=== PATIENT | female | born 1990 | race Caucasian/White ===

== ENCOUNTER 2017-10-19 08:40 | Emergency (ER) | payer MEDICAID ==
--- NOTE | 2017-10-19 08:58 | ER Document Report ---
ED General - General Chief Complaint: Toothache Stated Complaint: TOOTHACHE Time Seen by Provider: 10/19/17 08:56 Mode of Arrival: Ambulatory Information source: Patient TRAVEL OUTSIDE OF THE [place] IN LAST 30 DAYS: No - HPI Notes: 27-year-old female who is 33 weeks presents today with left lower dental pain started about 2 weeks ago. Unable to be seen by dentist. OB/ SENIOR PRODUCT MANAGER will not manage her dental pain. pain is 6/10, achy and throbbing with eating. denies any fevers or chills. denies cp, sob, n/v/d, blurred vision, double vision. Patient has been taking her left over oxycodone 10 mg which she was prescribed by her dentist when she was not last year. She states she is putting them into and taking them. Patient did not tell her HYDROLOGY TECHNICIAN that she is taking oxycodone or her dentist that she is taking oxycodone while she is . Worse with eating hard foods. reports cold sensitivity. smoker [id number] years. No throat swelling and difficulty tolerating secretions. Reports she feels moving. Denies fevers, chills, chest pain,palpitations, shortness of breath, dyspnea, nausea, vomiting, diarrhea, abdominal pain, hematuria,blurred vision, double vision, loss of vision, speech changes, LH, dizziness, syncope, headaches, wheezing, ST, URI, neck pain, weakness, bowel or bladder dysfunction, saddle anesthesia, numbness or tingling in bilateral upper or lower extremities equally, muscle paralysis, weakness in bilateral upper or lower extremities equally or rash. Denies IV drug use. - Related Data Allergies/Adverse Reactions: amoxicillin [Amoxicillin] Allergy (Verified 10/19/17 08:42) Penicillins Allergy (Verified 10/19/17 08:42) erythromycin base [Erythromycin Base] Adverse Reaction (Verified 10/19/17 08:42) Past Medical History - General Information source: Patient - Social History Smoking Status: Current Every Day Smoker Family History: CAD, DM, Hypertension, Other Renal/ Medical History: Reports: Hx Kidney Stones Past Surgical History: Reports: Hx Oral Surgery - Immunizations Immunizations up to date: Yes Hx Diphtheria, Pertussis, Tetanus Vaccination: Yes Review of Systems - Review of Systems Notes: REVIEW OF SYSTEMS: CONSTITUTIONAL : Denies fever, chills, or sweats. Denies recent illness. EENT: Denies eye, ear, throat, or mouth pain or symptoms. Denies nasal or sinus congestion or discharge. Denies throat, tongue, or mouth swelling or difficulty swallowing. + dental oain CARDIOVASCULAR: Denies chest pain. Denies palpitations or racing or irregular heart beat. Denies ankle edema. RESPIRATORY: Denies cough, cold, or chest congestion. Denies shortness of breath, difficulty breathing, or wheezing. GASTROINTESTINAL: Denies abdominal pain or distention. Denies nausea, vomiting , or diarrhea. Denies blood in vomitus, stools, or per rectum. Denies black, tarry stools. Denies constipation. GENITOURINARY: Denies difficulty urinating, painful urination, burning, frequency, blood in urine, or discharge. FEMALE GENITOURINARY: Denies vaginal bleeding, heavy or abnormal periods, irregular periods. Denies vaginal discharge or odor. MUSCULOSKELETAL: Denies back or neck pain or stiffness. Denies joint pain or swelling. SKIN: Denies rash, lesions or sores. HEMATOLOGIC : Denies easy bruising or bleeding. LYMPHATIC: Denies swollen, enlarged glands. NEUROLOGICAL: Denies confusion or altered mental status. Denies passing out or loss of consciousness. Denies dizziness or lightheadedness. Denies headache. Denies weakness or paralysis or loss of use of either side. Denies problems with gait or speech. Denies sensory loss, numbness, or tingling. Denies seizures. PSYCHIATRIC: Denies anxiety or stress. Denies depression, suicidal ideation, or homicidal ideation. ALL OTHER SYSTEMS REVIEWED AND NEGATIVE. PHYSICAL EXAMINATION: GENERAL: Well-appearing, well-nourished and in no acute distress. HEAD: Atraumatic, normocephalic. EYES: Pupils equal round and reactive to light, extraocular movements intact, conjunctiva are normal. ENT: Nares patent, oropharynx clear without exudates. Moist mucous membranes. # 19 gingiva with swelling, erythema and induration. No drainage or open wounds. No fluctuance. No facial swelling. Poor oral dentition, left lower jaw with extensive dental caries, no definite swelling or effusion. NECK: Normal range of motion, supple without lymphadenopathy LUNGS: Breath sounds clear to auscultation bilaterally and equal. No wheezes rales or rhonchi. HEART: Regular rate and rhythm without murmurs ABDOMEN: Soft, nontender, nondistended abdomen. No guarding, no rebound. No masses appreciated. HR 156. Female : deferred Musculoskeletal: Normal range of motion, no pitting or edema. No cyanosis. NEUROLOGICAL: Cranial nerves grossly intact. Normal speech, normal gait. Normal sensory, motor exams PSYCH: Normal mood, normal affect. SKIN: Warm, Dry, normal turgor, no rashes or lesions noted. Dictation was performed using [employer] voice recognition software Physical Exam - Vital signs Vitals: Temp Pulse Resp BP Pulse Ox 97.8 F 65 16 174/85 H 99 10/19/17 08:45 10/19/17 08:45 10/19/17 08:45 10/19/17 08:45 10/19/17 08:45 Course - Re-evaluation Re-evalutation: 10/19/17 09:27 She states she is taking Keflex in the past without any issues though she does have allergy to amoxicillin, penicillins and erythromycin discussed the the diagnosis at great length. Educated patient extensively about not taking controlled substances while she is as this could cause harm to child and that she should never take any medication without getting approval from her medical care team. Patient verbalized understanding of these instructions and agree that she would not continue to take any controlled substances. Advised patient to take controlled substances to the pharmacy so they could destroy them as patient is taking medication that was not intended for her element today , but she gave them from a previous time when she was having dental pain. Patient states that she did take hydrocodone when she had shingles with her last , this was prescribed by her HYDROLOGY TECHNICIAN, at time of delivery, child was observed for 3 days to make sure child did not go home with trauma. Educated mother that dental pain does not require narcotics for pain control as she can take Tylenol, warm compresses, salt water gargles, eating soft foods, etc. patient as well as her mother both agreed that she would not be controlled substances and will bring controlled substances to the pharmacy to be destroyed. An return to the ER for any new or worsening sx. Patient understands to take the Rx as directed. All questions answered. Patient comfortable with the decision to go home. After performing a Medical Screening Examination, I estimate there is LOW risk for a DEEP SPACE INFECTION (e.g., TUSHAR'S ANGINA OR RETROPHARYNGEAL ABSCESS), MENINGITIS, INTRACRANIAL HEMORRHAGE, or AIRWAY COMPROMISE, thus I consider the discharge disposition reasonable. Also, there is no evidence or peritonitis, sepsis, or toxicity. I have reevaluated this patient multiple times and no significant life threatening changes are noted. The patient and I have discussed the diagnosis and risks, and we agree with discharging home with close follow-up with the understanding that symptoms and presentations can change. We also discussed returning to the Emergency Department immediately if new or worsening symptoms occur. We have discussed the symptoms which are most concerning (e.g., changing or worsening pain, trouble swallowing or breathing, neck stiffness or fever) that necessitate immediate return. - Vital Signs Vital signs: Temp Pulse Resp BP Pulse Ox 97.8 F 65 16 174/85 H 99 10/19/17 08:45 10/19/17 08:45 10/19/17 08:45 10/19/17 08:45 10/19/17 08:45 Discharge - Discharge Clinical Impression: Dental caries Condition: Good Disposition: HOME, SELF-CARE Instructions: [facility], Dentist, ([facility]), Toothache ([facility] ) Additional Instructions: Toothache Your pain is due to dental decay. The tooth must be repaired in order for you to feel better. You will, therefore, be referred to a dentist. Severe swelling or drainage around a tooth usually means a deep dental abscess. This also requires evaluation and treatment by the dentist, but antibiotics may be prescribed while awaiting dental treatment. You should be rechecked immediately if you develop major swelling of the face, increasing pain, a lump in the jaw or gums, headache, or fever. Apply warm compress 20 minutes on 20 minutes off several times a day to help with swelling. Take [id number] Tylenol as needed for pain. Do not take hydrocodone, oxycodone or any other narcotic as you are 33 weeks and this is not recommended when he had dental pain to take narcotics. Advised you to bring these narcotics to your local pharmacy for them to destroy safely. Follow-up with your HYDROLOGY TECHNICIAN and dentist within 3 days. Return immediately for any new or worsening symptoms. Follow up with primary care provider, call tomorrow to make followup appointment. Prescriptions: Cephalexin Monohydrate [Keflex 500 mg Capsule] 500 mg PO BID #20 capsule Referrals: JHON WILD MD [ACTIVE STAFF] - Follow up in 3-5 days VALERIE CABAN MD [ACTIVE STAFF] - Follow up in 3-5 days
[2017-10-19 09:42] VITALS: BP 153/91
== END 2017-10-19 09:40 | disposition home or self-care (01) ==
LOC: ER 08:40
DX: O99.613 Diseases of the digestive system complicating pregnancy, third trimester (principal); K02.9 Dental caries, unspecified; O99.333 Smoking (tobacco) complicating pregnancy, third trimester; Z3A.33 33 weeks gestation of pregnancy; Z88.0 Allergy status to penicillin; Z88.1 Allergy status to other antibiotic agents
CPT/HCPCS: 99282

== ENCOUNTER 2017-10-29 17:32 | Emergency (ER) | payer MEDICAID ==
--- NOTE | 2017-10-29 18:13 | ER Document Report ---
HPI - HPI Pain Level: 4 Context: Patient is a 27-year-old female who is 8 months presents with toothache. Patient states that she has had dental issues delivers. With a history of hyperemesis gravidarum and smoking that she has had recurrent dental infections. She is following with a dentist to have them extracted when sheOtherwise denies any fevers, chills, foul odor, swelling. - REPRODUCTIVE Reproductive: DENIES: : Past Medical History - Social History Smoking Status: Current Every Day Smoker Family History: CAD, DM, Hypertension, Other Renal/ Medical History: Reports: Hx Kidney Stones. Denies: Hx Peritoneal Dialysis Past Surgical History: Reports: Hx Oral Surgery - Immunizations Immunizations up to date: Yes Hx Diphtheria, Pertussis, Tetanus Vaccination: Yes Vertical Provider Document - CONSTITUTIONAL Agree With Documented VS: Yes Notes: PHYSICAL EXAM GENERAL: Alert, interacts well. HEAD: Normocephalic, atraumatic. EYES: Pupils equal, round, and reactive to light. Extraocular movements intact. ENT: Oral mucosa moist, tongue midline. Evidence of poor dentition with multiple dental caries and chronic fractures without any significant abscess NECK: Full range of motion. Supple. Trachea midline. LUNGS: Clear to auscultation bilaterally, no wheezes, rales, or rhonchi. No respiratory distress. HEART: Regular rate and rhythm. No murmurs, gallops, or rubs. ABDOMEN: Soft, gravid, nondistended, nontender. No right upper quadrant pain no guarding, rebound, or rigidity.. Bowel sounds present in all 4 quadrants. EXTREMITIES: Moves all 4 extremities spontaneously. No edema, radial and dorsalis pedis pulses 2/4 bilaterally. No cyanosis. NEUROLOGICAL: Alert and oriented x4. Normal speech. PSYCH: Normal affect, normal mood. SKIN: Warm, dry, normal turgor. No rashes or lesions noted. - INFECTION CONTROL TRAVEL OUTSIDE OF THE [place] IN LAST 30 DAYS: No - RESPIRATORY O2 Sat by Pulse Oximetry: 98 Course - Re-evaluation Re-evalutation: 10/29/17 18:11 Presentation is most consistent with likely an infected tooth. Airway is patent. Patient is able swallow without any difficulty. There is no significant facial swelling. Patient will be started on antibiotics review of the vital signs are concerning for her elevated blood pressure.However patient denies any right upper quadrant pain, Weakness. Physical exam without any evidence of purpura, Mann sign, right upper quadrant tenderness, focal neurological deficits or headache. Discussed concern with patient that she does meet criteria for preeclampsia diagnosis with her elevated blood pressure. Low suspicion at this time for HELLP she states that she has discussed this previously with her NAPHTHOL SOAPING MACHINE OPERATOR at [facility] and is due to follow-up with them on Monday regarding their concern for preeclampsia diagnosis. I've instructed to follow-up with dentistry as earliest ability for definitive management but more importantly to keep her pain appointment with her NAPHTHOL SOAPING MACHINE OPERATOR to follow with her blood pressure. Return precautions and follow-up recommendations have been discussed at length. - Vital Signs Vital signs: Temp Pulse Resp BP Pulse Ox 98.4 F 70 20 149/80 H 98 10/29/17 17:40 10/29/17 17:40 10/29/17 17:40 10/29/17 17:40 10/29/17 17:40 Discharge - Discharge Clinical Impression: Toothache Condition: Good Disposition: HOME, SELF-CARE Additional Instructions: You have been seen for dental pain. It is very important that you follow-up with a dentist for definitive care. Please return if you develop fever greater than 101, swelling in your face, vomiting, difficulty breathing or swallowing, or any other symptoms that are concerning to you. For pain you should take Acetaminophen 325-650 mg every 6-8 hours as needed for pain Prescriptions: Cephalexin Monohydrate [Keflex 500 mg Capsule] 500 mg PO BID 10 Days capsule Forms: Return to Work Referrals: TREVIN REEVES MD [Primary Care Provider] - Follow up as needed
[2017-10-29 18:16] VITALS: BP 150/87
== END 2017-10-29 18:43 | disposition home or self-care (01) ==
LOC: ER 17:32
DX: O26.93 Pregnancy related conditions, unspecified, third trimester (principal); K08.9 Disorder of teeth and supporting structures, unspecified; O99.333 Smoking (tobacco) complicating pregnancy, third trimester; Z87.442 Personal history of urinary calculi
CPT/HCPCS: 99282

== ENCOUNTER 2017-11-17 18:46 | Inpatient (IN) | payer MEDICAID ==
[2017-11-17 19:46] LABS: ABSOLUTE EOSINOPHILS # (AUTO) 0.1 10^3/uL (0.0-0.6); ABSOLUTE LYMPHOCYTES (AUTO) 1.3 10^3/uL (0.5-4.7); ABSOLUTE MONOCYTES (AUTO) 0.7 10^3/uL (0.1-1.4); ABSOLUTE NEUT (AUTO) 5.7 10^3/uL (1.7-8.2); BASOPHILS % (AUTO) 0.4 % (0-2); EOSINOPHILS % (AUTO) 0.9 % (0-6); HEMOGLOBIN 13.6 g/dL (12.0-15.5); LYMPHOCYTES % (AUTO) 16.7 % (13-45); MEAN CORPUSCULAR HEMOGLOBIN 32.6 pg (27.0-33.4); MEAN CORPUSCULAR HGB CONC 34.8 g/dL (32.0-36.0); MEAN CORPUSCULAR VOLUME 94 fl (80-97); MONOCYTES % (AUTO) 9.1 % (3-13); PLATELET COUNT 122 10^3/uL (150-450); RED BLOOD COUNT 4.16 10^6/uL (3.72-5.28); SEGMENTED NEUTROPHILS % (AUTO) 72.9 % (42-78); TOTAL CELLS COUNTED % (AUTO) 100 %; WHITE BLOOD COUNT 7.9 10^3/uL (4.0-10.5)
[2017-11-17 20:00] LABS: ALANINE AMINOTRANSFERASE 29 U/L (9-52); ALBUMIN 3.6 g/dL (3.5-5.0); ALKALINE PHOSPHATASE 110 U/L (38-126); ANION GAP 8 (5-19); ASPARTATE AMINO TRANSFERASE 29 U/L (14-36); BILIRUBIN,DIRECT 0.1 mg/dL (0.0-0.4); BILIRUBIN,TOTAL 0.2 mg/dL (0.2-1.3); BLOOD UREA NITROGEN 12 mg/dL (7-20); CARBON DIOXIDE 24 mmol/L (22-30); CHLORIDE 106 mmol/L (98-107); GLUCOSE 109 mg/dL (75-110); POTASSIUM 3.9 mmol/L (3.6-5.0); SODIUM 138.4 mmol/L (137-145); TOTAL PROTEIN 6.1 g/dL (6.3-8.2); URIC ACID 2.9 mg/dL (2.5-6.2)
[2017-11-17 20:02] LABS: APPEARANCE,URINE CLEAR; BILIRUBIN,URINE NEGATIVE (NEGATIVE); COLOR,URINE YELLOW; GLUCOSE, URINE NEGATIVE (NEGATIVE); KETONES,URINE TRACE mg/dL (NEGATIVE); LEUKOCYTE ESTERASE,URINE TRACE (NEGATIVE); NITRITE,URINE NEGATIVE (NEGATIVE); PROTEIN,URINE 30 mg/dL (NEGATIVE); URINE SPECIFIC GRAVITY 1.031
[2017-11-17 20:17] LABS: URINE AMPHETAMINES SCREEN NEGATIVE; URINE BARBITURATES SCREEN NEGATIVE; URINE COCAINE SCREEN NEGATIVE; URINE METHADONE SCREEN NEGATIVE; URINE PHENCYCLIDINE SCREEN NEGATIVE
[2017-11-17] MEDS ORDERED: DINOPROSTONE 10 MG VAGINAL INSERT.SR PV PRN (20:19)
[2017-11-17] MEDS ORDERED: RINGERS SOLUTION,LACTATED 300 ML IV ONE (20:19)
[2017-11-17] MEDS: OXYTOCIN/NORMAL SALINE 20 UNIT/1,000 ML RTUINJ IV PRN (20:19)
[2017-11-17 20:26] LABS: URINE BENZODIAZEPINES SCREEN UNCONFIRMED POSITIVE; URINE MARIJUANA (THC) SCREEN UNCONFIRMED POSITIVE
[2017-11-17] MEDS ORDERED: HYDRALAZINE HCL INJ/PF 20 MG/1 ML SDV IV ONE (20:36)
[2017-11-17] MEDS ORDERED: HYDRALAZINE HCL INJ/PF 20 MG/1 ML SDV ONE (20:37)
[2017-11-17] MEDS: RINGERS SOLUTION,LACTATED 1,000 ML IV PRN (20:41)
[2017-11-17 20:51] LABS: UR PRO/CREAT RATIO RESULT 0.1 mg/mg (0.0-0.2); URINE CREATININE 220.7 mg/dL (16-327)
[2017-11-17] MEDS ORDERED: OXYTOCIN/NORMAL SALINE 20 UNIT/1,000 ML RTUINJ ONE (21:22)
--- NOTE | 2017-11-17 22:24 | RADIOLOGY REPORT (SQ) ---
EXAM DESCRIPTION: U/S OB LIMITED COMPLETED DATE/TIME: 11/17/2017 9:50 pm REASON FOR STUDY: fluid, growth, presentation, PreE COMPARISON: None. TECHNIQUE: Limited transabdominal grayscale ultrasound for evaluation of specific requested obstetri constance parameters. LIMITATIONS: None. FINDINGS: VICKIE: 6.6 cm. LVP 3.8 cm FHR: 122 beats per minute. PRESENTATION: Cephalic. OTHER: 39 week 3 day. IMPRESSION: LIMITED OBSTETRICAL ULTRASOUND WITH MEASURED PARAMETERS DELINEATED ABOVE. Trimester of : Third trimester - 28 weeks to delivery. TECHNICAL DOCUMENTATION: JOB ID: [id number] [id number] 2010 [email or web address]- All Rights Reserved Reading location - IP/workstation name: [email or web address]
[2017-11-17] MEDS ORDERED: VANCOMYCIN HCL INJ 1000 MG VIAL ONE (23:03)
[2017-11-17] MEDS ORDERED: VANCOMYCIN HCL 1,000 MG in DEXTROSE 5%-WATER 250 ML IV SCH (23:15)
[2017-11-18] MEDS ORDERED: CEPHALEXIN 500 MG CAPSULE PO ONE
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
[2017-11-18] MEDS: OXYTOCIN/NORMAL SALINE 20 UNIT/1,000 ML RTUINJ IV PRN (00:08)
[2017-11-18] MEDS ORDERED: MISOPROSTOL 0.2 MG TABLET ONE (01:49)
[2017-11-18] MEDS ORDERED: EPHEDRINE SULFATE INJ 50 MG/1 ML AMPULE ONE (01:50)
[2017-11-18] MEDS ORDERED: FENTANYL/BUPIVACAINE/NS/PF 200 MCG/100 ML RTUINJ EPI ONE (01:50)
[2017-11-18] MEDS ORDERED: BUPIVACAINE HCL 0.25 % INJ/PF (2.5 MG/1 ML) 30 ML VIAL ONE (01:50)
[2017-11-18] MEDS ORDERED: LIDOCAINE 1% INJ-PF (10 MG/ML) 30 ML SDV ONE (01:50)
[2017-11-18] MEDS ORDERED: HYDRALAZINE HCL INJ/PF 20 MG/1 ML SDV IV ONE ×3 (02:20→10:15)
[2017-11-18] MEDS: RINGERS SOLUTION,LACTATED 1,000 ML IV PRN (05:17)
[2017-11-18 05:22] LABS: CHLAM PCR NOT DETECTED (NOT DETECT); GON PCR NOT DETECTED (NOT DETECT)
[2017-11-18] MEDS ORDERED: BENZOCAINE/MENTHOL AEROSOL SPRAY 56 ML TOP PRN (07:31)
[2017-11-18] MEDS ORDERED: ZOLPIDEM TARTRATE 5 MG TABLET PO PRN (07:31)
[2017-11-18] MEDS ORDERED: DIBUCAINE 1% OINTMENT 28 GM TP PRN (07:31)
[2017-11-18] MEDS ORDERED: PROMETHAZINE HCL 25 MG TABLET PO PRN (07:31)
[2017-11-18] MEDS ORDERED: PROMETHAZINE HCL INJ 25 MG/1 ML VIAL IV PRN (07:31)
[2017-11-18] MEDS ORDERED: OXYTOCIN/NORMAL SALINE 20 UNIT/1,000 ML RTUINJ IV PRN (07:31)
[2017-11-18] MEDS ORDERED: ACETAMINOPHEN 325 MG TABLET PO PRN (07:31)
[2017-11-18] MEDS ORDERED: PSEUDOEPHEDRINE HCL 30 MG TABLET PO PRN (07:31)
[2017-11-18] MEDS ORDERED: PROMETHAZINE HCL 25 MG SUPP.RECT PR PRN (07:31)
[2017-11-18] MEDS ORDERED: DIPHENHYDRAMINE HCL 25 MG CAPSULE PO PRN (07:31)
[2017-11-18] MEDS ORDERED: DIPH/PERTUSS(ACELL)/TETANUS VAC/PF 0.5 ML SYR (>=10YO) IM PRN (07:31)
[2017-11-18] MEDS ORDERED: MEASLES,MUMPS&RUBELLA VACC/PF 0.5 ML VIAL SUBCUT PRN (07:31)
[2017-11-18] MEDS ORDERED: MAGNESIUM HYDROXIDE SUSP 30 ML UDCUP PO PRN (07:31)
[2017-11-18] MEDS ORDERED: NA PHOS,M-B/NA PHOS,DI-BA (ADULT) 133 ML ENEMA PR PRN (07:31)
[2017-11-18] MEDS ORDERED: GLYCERIN/WITCH HAZEL LEAF 1 EACH MED..PAD TP PRN (07:31)
[2017-11-18] MEDS ORDERED: ACETAMINOPHEN WITH CODEINE #3 TABLET PO PRN (07:31)
--- NOTE | 2017-11-18 07:38 | Warning Signs in Babies ---
VOD Warning Signs Datetime Report Generated by [facility]: 11/18/2017 07:38 VOD#608 -Warning Signs in Babies: Viewed with Parent(s)/Family (11/18/2017 07:38:Becka Ferguson RN)
[2017-11-18] MEDS ORDERED: HYDRALAZINE HCL INJ/PF 20 MG/1 ML SDV ONE ×2 (07:44→09:39)
[2017-11-18] MEDS ORDERED: ACETAMINOPHEN 325 MG TABLET ONE (07:55)
[2017-11-18] MEDS ORDERED: NIFEDIPINE 30 MG TAB.ER.24 PO ONE (08:49)
[2017-11-18] MEDS: NIFEDIPINE 30 MG TAB.ER.24 PO SCH (11:05)
[2017-11-18] MEDS: PRENATAL VITAMIN W DHA CAPSULE PO SCH (11:06)
[2017-11-18] MEDS: DOCUSATE SODIUM 100 MG CAPSULE PO SCH ×2 (11:06→17:13)
[2017-11-18] MEDS: CEPHALEXIN 500 MG CAPSULE PO SCH ×2 (11:07→17:14)
[2017-11-18] MEDS: FERROUS SULFATE 325 MG TABLET PO SCH ×2 (11:07→17:13)
[2017-11-18] MEDS: SENNOSIDES/DOCUSATE 8.6-50 MG 1 EACH TABLET PO SCH (11:07)
[2017-11-18] MEDS: FAMOTIDINE 20 MG TABLET PO SCH ×2 (11:12→22:47)
[2017-11-18] MEDS: IBUPROFEN 800 MG TABLET PO SCH ×2 (14:47→22:46)
[2017-11-18] MEDS ORDERED: POLYETHYLENE GLYCOL 3350 POWDER 17 GM/1 PACKET PO PRN (15:38)
[2017-11-18] MEDS: ACETAMINOPHEN WITH CODEINE #3 TABLET PO PRN (16:01)
[2017-11-18] MEDS ORDERED: POLYETHYLENE GLYCOL 3350 POWDER 17 GM/1 PACKET ONE (17:03)
[2017-11-19 07:21] LABS: HEMATOCRIT 37.3 % (36.0-47.0); HEMOGLOBIN 12.7 g/dL (12.0-15.5); MEAN CORPUSCULAR HEMOGLOBIN 32.2 pg (27.0-33.4); MEAN CORPUSCULAR VOLUME 95 fl (80-97); PLATELET COUNT 109 10^3/uL (150-450); RED BLOOD COUNT 3.94 10^6/uL (3.72-5.28); RED CELL DISTRIBUTION WIDTH 13.8 % (11.5-14.0); WHITE BLOOD COUNT 7.6 10^3/uL (4.0-10.5)
[2017-11-19] MEDS: IBUPROFEN 800 MG TABLET PO SCH ×2 (07:32→14:11)
[2017-11-19] MEDS: ACETAMINOPHEN WITH CODEINE #3 TABLET PO PRN (07:33)
[2017-11-19] MEDS: DOCUSATE SODIUM 100 MG CAPSULE PO SCH (09:11)
[2017-11-19] MEDS: FERROUS SULFATE 325 MG TABLET PO SCH (09:11)
[2017-11-19] MEDS: CEPHALEXIN 500 MG CAPSULE PO SCH (09:11)
[2017-11-19] MEDS: PRENATAL VITAMIN W DHA CAPSULE PO SCH (09:12)
[2017-11-19] MEDS: SENNOSIDES/DOCUSATE 8.6-50 MG 1 EACH TABLET PO SCH (09:12)
[2017-11-19] MEDS: FAMOTIDINE 20 MG TABLET PO SCH (09:13)
[2017-11-19] MEDS: NIFEDIPINE 30 MG TAB.ER.24 PO SCH (09:13)
[2017-11-19 09:40] VITALS: BP 122/79
[2017-11-19] MEDS ORDERED: POLYETHYLENE GLYCOL 3350 POWDER 17 GM/1 PACKET PO SCH (10:00)
--- NOTE | 2017-11-19 10:52 | PDOC PROGRESS REPORT ---
Subjective-OB Progress Note for:: 11/19/17 Subjective: Sleeping on rounds, friend in bed with her, eating well, scant bleeding, wants to go home, voiding Physical Exam (OB) Vital Signs: Temp Pulse Resp BP Pulse Ox 98.0 F 75 18 122/79 97 11/19/17 09:39 11/19/17 09:39 11/19/17 09:39 11/19/17 09:39 11/19/17 09:39 Intake & Output 11/18/17 11/19/17 11/20/17 06:59 06:59 06:59 Intake Total 800 Balance 800 Weight 62.5 kg - Lochia Lochia Amount: Scant < 10 ml Lochia Color: Rubra/Red - Abdomen Description: Tender, Soft, Round Hernia Present: No Fundal Description: Firm, Midline Fundal Height: u/u - u/2 Objective-Diagnostic Laboratory: 11/19/17 06:59 11/17/17 19:30 11/19/17 06:59 WBC 7.6 RBC 3.94 Hgb 12.7 Hct 37.3 MCV 95 MCH 32.2 MCHC 34.0 RDW 13.8 Plt Count 109 L Assessment and Plan(PN) - Assessment and Plan (2) Intrauterine growth restriction (IUGR) affecting care of mother Qualifiers: Fetus number: single or unspecified fetus Is this a current diagnosis for this admission?: Yes (3) Pre-eclampsia Qualifiers: Trimester: third trimester Qualified Code(s): O14.93 - Unspecified pre- eclampsia, third trimester Is this a current diagnosis for this admission?: Yes (4) Poor dentition Is this a current diagnosis for this admission?: Yes (5) Poor patient attendance of care Is this a current diagnosis for this admission?: Yes (6) Addiction, marijuana Is this a current diagnosis for this admission?: Yes (7) Cannabinoid hyperemesis syndrome Is this a current diagnosis for this admission?: Yes - Time Spent with Patient Time with patient: Less than 15 minutes Smoking Education Provided: Over 3 minutes Medications reviewed and adjusted accordingly: Yes - Disposition Anticipated Discharge: Home Within: Other - pt desires to go home today, baby in NICU
--- NOTE | 2017-11-19 10:59 | PDOC DISCHARGE SUMMARY ---
Final Diagnosis Discharge Date: 11/19/17 - Final Diagnosis (1) Vaginal delivery Is this a current diagnosis for this admission?: Yes (2) Intrauterine growth restriction (IUGR) affecting care of mother Is this a current diagnosis for this admission?: Yes (3) Pre-eclampsia Is this a current diagnosis for this admission?: Yes (4) Poor dentition Is this a current diagnosis for this admission?: Yes (5) Poor patient attendance of care Is this a current diagnosis for this admission?: Yes (6) Addiction, marijuana Is this a current diagnosis for this admission?: Yes Discharge Data - Discharge Medication Prescriptions: Cephalexin Monohydrate [Keflex 500 mg Capsule] 500 mg PO BID 10 Days #20 capsule Nifedipine [Procardia XL 30 mg Tablet] 30 mg PO DAILY #30 tab.er.24 Home Medications: Doxylamine Succinate/Vit B6 [Diclegis Dr 10-10 mg Tablet] 10 mg PO DAILY Vit/Iron Fum/Folic AC [ Tablet] 1 each PO DAILY 11/17/17 Cephalexin Monohydrate [Keflex 500 mg Capsule] 500 mg PO BID 10 Days #20 capsule 11/19/17 Nifedipine [Procardia XL 30 mg Tablet] 30 mg PO DAILY #30 tab.er.24 11/19/17 Gestational Age: 38.2 Reason(s) for Admission: Induction of Labor, PIH Admission Note: Preclampsia, IUGR, non compliant with care, Procedures: NST, Ultrasound Intrapartum Procedure(s): Spontaneous Vaginal Delivery - [place] Data Baby 1 Male at 1 minute: 8 at 5 minutes: 9 Weight: 1.956 kg Home with Mother: No Complications: Yes - IUGR - Diagnosis Test Laboratory: Temp Pulse Resp BP Pulse Ox 98.0 F 75 18 122/79 97 11/19/17 09:39 11/19/17 09:39 11/19/17 09:39 11/19/17 09:39 11/19/17 09:39 11/17/17 11/17/17 11/19/17 19:25 19:30 06:59 RBC 4.16 3.94 Hgb 13.6 12.7 Hct 39.0 37.3 Urine Opiates Screen UNCONFIRMED POSITIVE - Discharge information/Instructions Discharge Activity: Activity As Tolerated, No Lifting Over 10 Pounds, No Lifting /Push/Pulling, Pelvic Rest Discharge Diet: As Tolerated, Regular Disposition: HOME, SELF-CARE Follow [facility]: [facility], Days - check BP in office
--- NOTE | 2017-11-28 10:11 | Delivery Summary ---
Del Sum A-C Datetime Report Generated by CPN: 11/28/2017 10:11 DELIVERY PERSONNEL DELIVERY PERSONNEL: [id number] Delivery Doctor:: Julieta Arcos MD Anesthesiologist:: Velma Tristan MD Labor and Delivery Nurse:: Becka Ferguson RNunderground distribution engineer Nurse:: Jessa Hobbs RN Nursery Nurse:: Jeanette Cunha RN Integrated Marketing Manager/TAILERCPA: ST Jess Integrated Marketing Manager/TAILERCPA: Isis Molina, ST MATERNAL INFORMATION Delivery Anesthesia: Epidural Medications After Delivery: Pitocin Drip 20 Units/1000ml NSS Provider Comments: VMI delivered in LENCHO presentation. Nuchal cord delivered through. Shoulders and body delivered without difficulty. Cord doubly clamped and cut. Placenta delivered intact spontaneously - umbilical cord very thin and placenta appears calcified. No perineal lacerations. FF at U. Good hemostasis. Mother and baby stable upon provider leaving the room. Baby weight smaller than estimated at admission on US - so severe IUGR. LABOR SUMMARY EDC: 11/30/2017 00:00 No. Babies in Womb: 1 Attempted: No Labor Anesthesia: Epidural LABOR INFORMATION Reason for Induction: Pre-Eclampsia; Other Reason for Induction- Other: IUGR Onset of Labor: 11/18/2017 03:20 Complete Dilatation: 11/18/2017 07:04 Cervical Ripening Agents: Bailey Balloon Oxytocin: Induction Group B Beta Strep: Unknown Antibiotics # of Doses: 1 Antibiotics Time of Last Dose: 1872 Name of Antibiotic Given: Vancomycin Steroids Given: None Reason Steroids Not Administered: Not Applicable MEMBRANES Membranes Rupture Method: Artificial Rupture of Membranes: 11/18/2017 03:20 Length of Rupture (hr): 3.80 Amniotic Fluid Color: Clear Amniotic Fluid Amount: Scant Amniotic Fluid Odor: Normal STAGES OF LABOR Stage 1 hr: 3 Stage 1 min: 44 Stage 2 hr: 0 Stage 2 min: 4 Stage 3 hr: 0 Stage 3 min: 2 Total Time in Labor hr: 3 Total Time in Labor min: 50 VAGINAL DELIVERY Episiotomy: None Laceration #1: None Laceration Extension #1: N/A Laceration Repair: Not Applicable Sponge Count Correct: Yes Sharps Count Correct: Yes CSECTION DELIVERY Primary Indication: N/A Secondary Indication: N/A CSection Incidence: N/A Labor: N/A Elective: N/A CSection Incision: N/A BABY A INFORMATION Infant Delivery Date/Time: 11/18/2017 07:08 Method of Delivery: Vaginal Born in Route : No : N/A Forceps: N/A Vacuum Extraction: N/A Shoulder Dystocia : No PRESENTATION/POSITION BABY A Presentation: Cephalic Presentation: Cephalic Cephalic Presentation: Vertex Vertex Position: Left Occipital Anterior Breech Presentation: N/A PLACENTA INFORMATION BABY A Placenta Delivery Time : 11/18/2017 07:10 Placenta Method of Delivery: Spontaneous Placenta Status: Delivered SCORES BABY A Heart Rate 1 min: >100 bpm Resp Effort 1 min: Good Cry Reflex Irritability 1 min: Cough or Sneeze or Pulls Away Muscle Tone 1 min: Active Motion Color 1 min: Blue/Pale Resuscitation Effort 1 min: Tactile Stimulation SCORE 1 MIN: 8 Heart Rate 5 min: >100 bpm Resp Effort 5 min: Good Cry Reflex Irritability 5 min: Cough or Sneeze or Pulls Away Muscle Tone 5 min: Active Motion Color 5 min: Body [place], Extremities Blue Resuscitation Effort 5 min: Tactile Stimulation SCORE 5 MIN: 9 INFANT INFORMATION BABY A Gestational Age at Delivery: 38.2 Gestational Status: Early Term- 37- 38.6 Weeks Outcome : Liveborn Infant Condition : Stable Infant Sex: Male IDENTIFICATION BABY A Verification Date/Time: 11/18/2017 08:45 ID Band Number: [id number] Mother's Name Verified: Yes RN Verifying : R Marty RN, C [employer] RN WEIGHT/LENGTH BABY A Infant Birthweight (gm): 1950 Infant Weight (lb): 4 Weight (oz): 5 Length (in): 16.50 Infant Length (cm): 41.91 CORD INFORMATION BABY A No. Cord Vessels: 3 Nuchal Cord : Around Neck x1, Loose Cord Blood Taken: Yes-For Eval (Mom's Blood Type - or O+) Infant Suction: Mouth; Nose ASSESSMENT BABY A Skin to Skin: Yes BABY B INFORMATION : N/A SIGNATURES Signature: Electronically signed by Julieta Arcos MD ([facility]) on 11/18/2017 at 07:45 with User ID: [email or web address]
== END 2017-11-19 14:31 | disposition home or self-care (01) | DRG 775 ==
LOC: LC 18:46 → LR 19:26 → 2S 11-18 10:20
PROVIDERS: ADMIT Student in an Organized Health Care Education/Training Program; ATTEND Student in an Organized Health Care Education/Training Program
PROC: 4A1HXCZ Monitoring of Products of Conception, Cardiac Rate, External Approach (ICD-10-PCS; 2017-11-17)
PROC: 10E0XZZ Delivery of Products of Conception, External Approach (ICD-10-PCS; principal; 2017-11-18)
PROC: 0U7C7ZZ Dilation of Cervix, Via Natural or Artificial Opening (ICD-10-PCS; 2017-11-18)
PROC: 3E033VJ Introduction of Other Hormone into Peripheral Vein, Percutaneous Approach (ICD-10-PCS; 2017-11-18)
PROC: 10907ZC Drainage of Amniotic Fluid, Therapeutic from Products of Conception, Via Natural or Artificial Opening (ICD-10-PCS; 2017-11-18)
DX: O36.5930 Maternal care for other known or suspected poor fetal growth, third trimester, not applicable or unspecified (principal); O99.324 Drug use complicating childbirth; O14.04 Mild to moderate pre-eclampsia, complicating childbirth; F12.20 Cannabis dependence, uncomplicated; O13.4 Gestational [pregnancy-induced] hypertension without significant proteinuria, complicating childbirth; O21.1 Hyperemesis gravidarum with metabolic disturbance; F17.210 Nicotine dependence, cigarettes, uncomplicated; O99.334 Smoking (tobacco) complicating childbirth; K42.9 Umbilical hernia without obstruction or gangrene; O26.893 Other specified pregnancy related conditions, third trimester; O69.81X0 Labor and delivery complicated by cord around neck, without compression, not applicable or unspecified; Z79.899 Other long term (current) drug therapy; Z91.19 Patient's noncompliance with other medical treatment and regimen; Z88.3 Allergy status to other anti-infective agents; Z88.0 Allergy status to penicillin; Z3A.38 38 weeks gestation of pregnancy; Z37.0 Single live birth
CPT/HCPCS: 36415; 76815; 80053; 80307; 80361; 81001; 82570; 84156; 84550; 85025; 85027; 86592; 86850; 86900; 86901; 87491; 87591; 88307; C1726; G0480; J0360; J2590; J3370; J3490

== ENCOUNTER 2020-05-19 20:06 | Inpatient (IN) | payer MEDICAID ==
[2020-05-19] MEDS ORDERED: DINOPROSTONE 10 MG VAGINAL INSERT.SR PV PRN (20:25)
[2020-05-19] MEDS ORDERED: RINGERS SOLUTION,LACTATED 1,000 ML IV ONE (20:25)
[2020-05-19] MEDS ORDERED: MISOPROSTOL 0.2 MG TABLET ONE (20:30)
[2020-05-19] MEDS ORDERED: OXYTOCIN/0.9 % SODIUM CHLORIDE 30 UNIT/500 ML RTUINJ ONE (20:30)
[2020-05-19] MEDS ORDERED: OXYTOCIN 10 UNIT/ML VIAL ONE (20:30)
[2020-05-19] MEDS ORDERED: DINOPROSTONE 10 MG VAGINAL INSERT.SR ONE (20:30)
[2020-05-19] MEDS ORDERED: LIDOCAINE 1% INJ-PF (10 MG/ML) 30 ML SDV ONE (20:30)
[2020-05-19] MEDS: RINGERS SOLUTION,LACTATED 1,000 ML IV PRN (20:55)
[2020-05-19 21:18] LABS: ABSOLUTE EOSINOPHILS # (AUTO) 0.1 10^3/uL (0.0-0.6); ABSOLUTE MONOCYTES (AUTO) 0.7 10^3/uL (0.1-1.4); ABSOLUTE NEUT (AUTO) 5.9 10^3/uL (1.7-8.2); BASOPHILS % (AUTO) 0.5 % (0-2); EOSINOPHILS % (AUTO) 1.2 % (0-6); HEMATOCRIT 35.9 % (36.0-47.0); HEMOGLOBIN 12.4 g/dL (12.0-15.5); LYMPHOCYTES % (AUTO) 13.1 % (13-45); MEAN CORPUSCULAR HEMOGLOBIN 31.1 pg (27.0-33.4); MEAN CORPUSCULAR HGB CONC 34.6 g/dL (32.0-36.0); MEAN CORPUSCULAR VOLUME 90 fl (80-97); MONOCYTES % (AUTO) 8.8 % (3-13); PLATELET COUNT 102 10^3/uL (150-450); RED BLOOD COUNT 3.99 10^6/uL (3.72-5.28); RED CELL DISTRIBUTION WIDTH 14.5 % (11.5-14.0); SEGMENTED NEUTROPHILS % (AUTO) 76.4 % (42-78); TOTAL CELLS COUNTED % (AUTO) 100 %; WHITE BLOOD COUNT 7.7 10^3/uL (4.0-10.5)
[2020-05-19 21:48] LABS: APPEARANCE,URINE CLEAR; BILIRUBIN,URINE NEGATIVE (NEGATIVE); COLOR,URINE AMBER; GLUCOSE, URINE NEGATIVE (NEGATIVE); KETONES,URINE TRACE mg/dL (NEGATIVE); LEUKOCYTE ESTERASE,URINE SMALL (NEGATIVE); NITRITE,URINE NEGATIVE (NEGATIVE); PROTEIN,URINE 30 mg/dL (NEGATIVE); URINE SPECIFIC GRAVITY 1.027; UROBILINOGEN,URINE NEGATIVE mg/dL (<2.0)
[2020-05-19] MEDS ORDERED: ZOLPIDEM TARTRATE 5 MG TABLET ONE (21:51)
[2020-05-19 22:01] LABS: URINE AMPHETAMINES SCREEN NEGATIVE; URINE BARBITURATES SCREEN NEGATIVE; URINE BENZODIAZEPINES SCREEN NEGATIVE; URINE COCAINE SCREEN NEGATIVE; URINE METHADONE SCREEN NEGATIVE; URINE PHENCYCLIDINE SCREEN NEGATIVE
[2020-05-19 22:02] LABS: URINE MARIJUANA (THC) SCREEN UNCONFIRMED POSITIVE
--- NOTE | 2020-05-19 22:06 | Admission Physical ---
Datetime Report Generated by CPN: 05/19/2020 22:05 CURRENT ADMISSION Chief Complaint: Signs/Symptoms Gestational HTN Indication for Induction: Gestational HTN Admit Impression : Term, Intrauterine Admit Plan: Admit to Unit ALLERGIES Medication Allergies: Yes Medication Allergies: Penicillins (11/17/2017); erythromycin base (11/17/2017); amoxicillin (11/17/2017) Latex: No Latex Allergies OBSTETRICAL HISTORY EDC: 05/30/2020 00:00 : 6 Para: 4 Term: 3 : 1 Livin Gestational Diabetes: No Rh Sensitization: No Incompetent Cervix: No NAKUL: No Infertility: No ART Treatment: No Uterine Anomaly: No IUGR: No Hx Previous C/S: No Macrosomia: No Hx Loss/Stillborn: No PIH: Yes Hx : No Placenta Previa/Abruption: No Depression/PP Depression: No PTL/PROM: No Post Hemorrhage: No Current Procedures: Ultrasound Obstetrical History Comments: G1- 2006, , term G2- 2011, , term G3- 2013, , 36 weeks G4- 2016, SAB G5- 2017, , term SEE RECORDS Alcohol: Yes Marijuana : Yes Cocaine: No Other Illicit Drugs: No Cigarettes: Current Everyday Smoker. [id number] Cigarette Frequency: < 5 per day Advised to Stop: Yes MEDICAL HISTORY Diabetes: No Blood Transfusion: No Pulmonary Disease (Asthma, TB): Yes Breast Disease: No Hypertension: Yes Layer Out Surgery: No Heart Disease: No Hosp/Surgery: Yes Autoimmune Disorder: No Anesthetic Complications: No Kidney Disease: Yes Abnormal Pap Smear: No Neuro/Epilepsy: No Psychiatric Disorders: No Other Medical Diseases: No Hepatitis/Liver Disease: No Significant Family History: No Varicosities/Phlebitis: No Trauma/Violence : No Thyroid Dysfunction: No Medical History Comments: GHTN with previous and current, UTI in the past, bronchial asthma, childbirth INFECTIOUS HISTORY Gonorrhea: No Genital Herpes: No Chlamydia: No Tuberculosis: No Syphilis: No Hepatitis: No HIV/AIDS Exposure: No Rash or Viral Illness: No HPV: No PHYSICAL EXAM General: Normal HEENT: Normal Neurologic: Normal Thyroid: Normal Heart: Normal Lungs: Normal Breast: Deferred Back: Normal Abdomen: Normal Genitourinary Exam: Normal Extremities: Normal DTRs: Normal Pelvic Type: Adequate FETUS A EGA: 38.3 PLANS FOR LABOR AND DELIVERY Labor and Delivery: None Pain Management: Epidural Feeding Preference: Formula Benefit of Breast Feed Discussed: Yes Circumcision: N/A INFORMED CONSENT Signature: with User ID: [email or web address]
[2020-05-20] MEDS ORDERED: MAG HYDROX/AL HYDROX/SIMETH SUSP 30 ML UDCUP ONE (04:05)
[2020-05-20 04:13] LABS: CHLAM PCR NOT DETECTED (NOT DETECT)
[2020-05-20] MEDS ORDERED: NALBUPHINE HCL INJ 10 MG/1 ML AMPULE INJ ONE (04:26)
[2020-05-20] MEDS ORDERED: PROMETHAZINE HCL INJ 25 MG/1 ML VIAL IV ONE (04:26)
[2020-05-20] MEDS ORDERED: NALBUPHINE HCL INJ 10 MG/1 ML AMPULE ONE (04:28)
[2020-05-20] MEDS ORDERED: PROMETHAZINE HCL INJ 25 MG/1 ML VIAL ONE (04:28)
[2020-05-20] MEDS ORDERED: ACETAMINOPHEN 325 MG TABLET ONE (07:48)
[2020-05-20] MEDS ORDERED: ACETAMINOPHEN 325 MG TABLET PO ONE (07:54)
[2020-05-20] MEDS ORDERED: EPHEDRINE SULFATE INJ 50 MG/1 ML AMPULE ONE (08:26)
[2020-05-20] MEDS ORDERED: ROPIVACAINE HCL 0.2% INJ/PF (2 MG/ML) 20 ML SDV ONE (08:26)
[2020-05-20] MEDS ORDERED: FENTANYL/BUPIVACAINE/NS/PF 300 MCG/150 ML RTUINJ EPI ONE (08:26)
--- NOTE | 2020-05-20 08:28 | L&D Progress Notes ---
PROGRESS NOTES Datetime Report Generated by CPN: 05/20/2020 08:28 PROGRESS NOTE Impression: Reassuring Heart Rate Procedures: Sterile Vag Exam Plan: Continue Present Management; Anticipate Vaginal Delivery Plan Other: pt may have epidural if possible Vital Signs : Reviewed; Within Normal Limits Comment: Assuming care of pt. IOL started last night w/ cervidil. at 38.3 wks, Pt now SROM and having strong contractions. Desires an epidural. VE /-1, vtx, appears clear fluid. Limited PNC, IOL for GHTN. O+, Rubella Immune, GBS negative. Low Platelets noted on admission. Attending MD is Dr De Souza this morning. Anticipate VAGINAL EXAM Dilatation: 4 Effacement: 90 Station: -1 Contractions: q2 LAST VAGINAL EXAM-NURSING Nursing Exam Dilitation: 3.0 Nursing Exam Effacement: 50 Nursing Exam Station: -3 Nursing Exam Contractions: irritability noted MEMBRANES Membranes: Ruptured Amniotic Fluid Color: Clear FETUS A FHR - Baseline: 140 Monitoring: External US Variability: Moderate 6-25bpm Accelerations: 15X15 Decelerations: None SIGNATURE SIGNATURE: [id number];[id number] Assignment: Josette De Souza MD Signature: with User ID: Greg : with User ID: Greg
[2020-05-20 08:35] LABS: ABSOLUTE BASOPHILS # (AUTO) 0.1 10^3/uL (0.0-0.2); ABSOLUTE EOSINOPHILS # (AUTO) 0.1 10^3/uL (0.0-0.6); ABSOLUTE LYMPHOCYTES (AUTO) 1.2 10^3/uL (0.5-4.7); ABSOLUTE MONOCYTES (AUTO) 1.1 10^3/uL (0.1-1.4); ABSOLUTE NEUT (AUTO) 8.2 10^3/uL (1.7-8.2); BASOPHILS % (AUTO) 0.6 % (0-2); EOSINOPHILS % (AUTO) 0.8 % (0-6); HEMATOCRIT 37.5 % (36.0-47.0); HEMOGLOBIN 13.3 g/dL (12.0-15.5); LYMPHOCYTES % (AUTO) 11.3 % (13-45); MEAN CORPUSCULAR HEMOGLOBIN 31.6 pg (27.0-33.4); MEAN CORPUSCULAR HGB CONC 35.4 g/dL (32.0-36.0); MEAN CORPUSCULAR VOLUME 89 fl (80-97); MONOCYTES % (AUTO) 10.4 % (3-13); RED BLOOD COUNT 4.21 10^6/uL (3.72-5.28); RED CELL DISTRIBUTION WIDTH 14.8 % (11.5-14.0); SEGMENTED NEUTROPHILS % (AUTO) 76.9 % (42-78); TOTAL CELLS COUNTED % (AUTO) 100 %; WHITE BLOOD COUNT 10.6 10^3/uL (4.0-10.5)
[2020-05-20 08:40] LABS: PLATELET COUNT 107 10^3/uL (150-450)
[2020-05-20] MEDS: RINGERS SOLUTION,LACTATED 1,000 ML IV PRN (09:11)
[2020-05-20] MEDS ORDERED: NA PHOS,M-B/NA PHOS,DI-BA (ADULT) 133 ML ENEMA PR PRN (10:04)
[2020-05-20] MEDS ORDERED: GLYCERIN/WITCH HAZEL LEAF 1 EACH MED..WIPE TP PRN (10:04)
[2020-05-20] MEDS ORDERED: PROMETHAZINE HCL INJ 25 MG/1 ML VIAL IV PRN (10:04)
[2020-05-20] MEDS ORDERED: MEASLES,MUMPS&RUBELLA VACC/PF 0.5 ML VIAL SUBCUT PRN (10:04)
[2020-05-20] MEDS ORDERED: OXYTOCIN/0.9 % SODIUM CHLORIDE 30 UNIT/500 ML RTUINJ IV PRN (10:04)
[2020-05-20] MEDS ORDERED: ACETAMINOPHEN 650 MG SUPP.RECT PR PRN (10:04)
[2020-05-20] MEDS ORDERED: ZOLPIDEM TARTRATE 5 MG TABLET PO PRN (10:04)
[2020-05-20] MEDS ORDERED: PROMETHAZINE HCL 25 MG TABLET PO PRN (10:04)
[2020-05-20] MEDS ORDERED: DIBUCAINE 1% OINTMENT 28 GM TP PRN (10:04)
[2020-05-20] MEDS ORDERED: DIPHENHYDRAMINE HCL 25 MG CAPSULE PO PRN (10:04)
[2020-05-20] MEDS ORDERED: PSEUDOEPHEDRINE HCL 30 MG TABLET PO PRN (10:04)
[2020-05-20] MEDS ORDERED: BENZOCAINE/MENTHOL AEROSOL SPRAY 56 ML TOP PRN (10:04)
[2020-05-20] MEDS ORDERED: MAGNESIUM HYDROXIDE SUSP 30 ML UDCUP PO PRN (10:04)
[2020-05-20] MEDS ORDERED: PROMETHAZINE HCL 25 MG SUPP.RECT PR PRN (10:04)
[2020-05-20] MEDS ORDERED: DIPH/PERTUSS(ACELL)/TETANUS VAC/PF 0.5 ML SYR (>=10YO) IM PRN (10:04)
[2020-05-20] MEDS ORDERED: ACETAMINOPHEN WITH CODEINE #3 TABLET ONE (11:22)
[2020-05-20] MEDS: ACETAMINOPHEN WITH CODEINE #3 TABLET PO PRN ×3 (11:24→22:09)
--- NOTE | 2020-05-20 12:00 | Delivery Summary ---
Del Sum A-C Datetime Report Generated by CPN: 05/20/2020 12:00 DELIVERY PERSONNEL DELIVERY PERSONNEL: [id number] Delivery Doctor:: Jia Willett CNM Labor and Delivery Nurse:: Jazlyn Cuello RNbiomedical specialist Nurse:: Inga Dennis RNC Nursery Nurse:: Korina Valdes RN Nursery Nurse:: Daniella Mercado RN Newspaper Photo Editor/TIP PRINTER: Germaine Jorge, ST Newspaper Photo Editor/TIP PRINTER: Sunitha Pitsko, ETHOLOGIST MATERNAL INFORMATION Medications After Delivery: Pitocin 30 Units in 500ml NS/D5W Delivery QBL: 200 Provider Comments: of VFI, delivered PATRICA, baby crying and placed on pts abodman in stable condition. Cord clamped and cut after one minute. Cord blood collected. Placenta delivered IV Pitocin infusing. Will send to pathology. Lower uterine segment atony noted, two small pieces of trailing membranes removed, then uterus was able to clamp down immediately, bleeding spontaneously resolved. 200 mcg Buccal Cytotec given. No repair needed. QBL 400 ml. Apgars 8,9. Mother and baby both in stable condition, skin to skin. Pt plans to bottlefeed. Attending MD is Dr De Souza LABOR SUMMARY EDC: 05/30/2020 00:00 No. Babies in Womb: 1 Attempted: No Labor Anesthesia: Epidural LABOR INFORMATION Reason for Induction: Gestational Hypertension Onset of Labor: 05/20/2020 07:30 Complete Dilatation: 05/20/2020 09:30 Cervical Ripening Agents: Cervidil Oxytocin: N/A Group B Beta Strep: negative Antibiotics # of Doses: n/a Steroids Given: None Reason Steroids Not Administered: Not Applicable MEMBRANES Membranes Rupture Method: Spontaneous Rupture of Membranes: 05/20/2020 07:30 Length of Rupture (hr): 2.13 Amniotic Fluid Color: Clear Amniotic Fluid Amount: Small Amniotic Fluid Odor: Normal STAGES OF LABOR Stage 1 hr: 2 Stage 1 min: 0 Stage 2 hr: 0 Stage 2 min: 8 Stage 3 hr: 0 Stage 3 min: 10 Total Time in Labor hr: 2 Total Time in Labor min: 18 VAGINAL DELIVERY Episiotomy: None Laceration Extension #1: First Degree Other Laceration: small labial minoral tare, hemostatiec, no repair needed Laceration Repair: Not Applicable Sponge Count Correct: Yes Sharps Count Correct: Yes CSECTION DELIVERY Primary Indication: N/A Secondary Indication: N/A CSection Incidence: N/A Labor: N/A Elective: N/A CSection Incision: N/A BABY A INFORMATION Infant Delivery Date/Time: 05/20/2020 09:38 Method of Delivery: Vaginal Nurse Controlled Delivery: No Born in Route : No : N/A Forceps: N/A Vacuum Extraction: N/A Shoulder Dystocia : No PRESENTATION/POSITION BABY A Presentation: Cephalic Cephalic Presentation: Vertex Breech Presentation: N/A PLACENTA INFORMATION BABY A Placenta Delivery Time : 05/20/2020 09:48 Placenta Method of Delivery: Spontaneous Placenta Status: Delivered SCORES BABY A Heart Rate 1 min: >100 bpm Resp Effort 1 min: Good Cry Reflex Irritability 1 min: Cough or Sneeze or Pulls Away Muscle Tone 1 min: Active Motion Color 1 min: Blue/Pale Resuscitation Effort 1 min: Tactile Stimulation SCORE 1 MIN: 8 Heart Rate 5 min: >100 bpm Resp Effort 5 min: Good Cry Reflex Irritability 5 min: Cough or Sneeze or Pulls Away Muscle Tone 5 min: Active Motion Color 5 min: Body Catherine, Extremities Blue SCORE 5 MIN: 9 INFORMATION BABY A Gestational Age at Delivery: 38.4 Gestational Status: Early Term- 37- 38.6 Weeks Outcome : Liveborn Infant Condition : Stable Sex: Female IDENTIFICATION BABY A Verification Date/Time: 05/20/2020 10:01 ID Band Number: [id number] Mother's Name Verified: Yes RN Verifying : Heena Cuello RN Additional Verifying Personnel: SCindy Jorge ST WEIGHT/LENGTH BABY A Infant Birthweight (gm): 2725 Infant Weight (lb): 6 Infant Weight (oz): 0 Infant Length (in): 18.75 Length (cm): 47.63 CORD INFORMATION BABY A No. Cord Vessels: 3 Nuchal Cord : N/A Cord Blood Taken: Yes-For Eval (Mom's Blood Type - or O+) Infant Suction: None ASSESSMENT BABY A Skin to Skin: Yes BABY B INFORMATION : N/A SIGNATURES Assignment: Josette De Souza MD Signature: with User ID: Greg : with User ID: Greg
--- NOTE | 2020-05-20 12:00 | Birth Certificate Data ---
Cert Data Datetime Report Generated by CPN: 05/20/2020 12:00 CERTIFICATE DATA 47a. Care: No (05/19/2020 19:53:Rosalie Collier RN) 47b. Date of First Visit: 03/02/2020 00:00 (05/19/2020 19:53:MEEK Kunz) 47c. Date of Last Visit: 05/19/2020 00:00 (05/19/2020 19:53:MEEK Kunz) 47d. Number of Visits: 3 (05/19/2020 19:53:MEEK Kunz) 48a. Number of Prev Live Births: 4 (05/19/2020 19:52:Rosalie Collier RN) 48b. Now Livin (05/19/2020 19:52:Rosalie Collier RN) 48c. Live Births Now : 0 (05/19/2020 19:52:QS system process) RISK FACTORS IN THIS 49a. Diabetes: No (05/19/2020 19:53:Rosalie Collier RN) 49b. Hypertension: Yes (05/19/2020 19:53:Rosalie Collier RN) Type of Hypertension: Gestational (PIH, Pre-eclampsia) (05/19/2020 19:53:Rosalie Collier RN) 49c. Previous Births: 1 (05/19/2020 19:52:Rosalie Collier RN) 49d. Stillborns: No (05/19/2020 19:53:Rosalie Collier RN) 49d. IUGR: No (05/19/2020 19:53:Rosalie Collier RN) 49e. Infertility Treatment: No (05/19/2020 19:53:Rosalie Collier RN) Mother's Height 50b. Height Inches: 62 (05/20/2020 11:44:Frogdice system process) Mother's Weight 51a. Pre- Weight (lbs): 115 (05/19/2020 19:53:Rosalie Collier RN) 51b. Weight at Delivery (lbs): 141 (05/20/2020 11:44:QS system process) 52. Dt Last Normal Menses Began: 10/17/2019 00:00 (05/19/2020 19:52:Rosalie Collier RN) Infections Present/Treated 53a. Gonorrhea: No (05/19/2020 19:53:Rosalie Collier RN) Results this Hospital Visit : Negative (05/19/2020 19:53:Rosalie Collier RN) 53b. Syphilis: No (05/19/2020 19:53:Rosalie Collier RN) Results this Hospital Visit: NONREACTIVE (05/19/2020 20:51:QS system process) 53c. Chlamydia: No (05/19/2020 19:53:Rosalie Collier RN) Results this Hospital Visit: Negative (05/19/2020 19:53:Rosalie Collier RN) 53d. Hepatitis B: No (05/19/2020 19:53:Rosalie Collier RN) Results this Hospital Visit: Unknown (05/19/2020 19:53:MEEK Kunz) 53e. Hepatitis C: Negative (05/19/2020 19:52:Rosalie Collier RN) 53h. Mother Tested for HBsAG: Yes (05/19/2020 19:53:MEEK Kunz) 53i. Date Tested: 05/19/2020 00:00 (05/19/2020 19:53:MEEK Kunz) 53j. Test Result: Unknown (05/19/2020 19:53:MEEK Kunz) Obstetric Procedures 54a, b, c. Obstetric Procedures: Ultrasound (05/19/2020 19:53:Rosalie Collier RN) Cigarette Smoking Cigarette Smoking: Current Everyday Smoker. [id number] (05/19/2020 19:53:Rosalie Collier RN) 55a. 3 Months Before Preg - Ci (05/19/2020 19:53:Rosalie Collier RN) 55b. 1st Trimester of Preg- Ci (05/19/2020 19:53:Rosalie Collier RN) 55c. 2nd Trimester of Preg- Ci (05/19/2020 19:53:Rosalie Collier RN) 55d. 3rd Trimester of Preg- Ci (05/19/2020 19:53:Rosalie Collier RN) Onset of Labor 56a. PROM >12 Hrs: 2.13 (05/19/2020 19:53:QS system process) 56b. Precipitous Labor <3 Hrs: 2 (05/19/2020 19:53:QS system process) 56c. Prolonged Labor > 20 Hrs: 2 (05/19/2020 19:53:QS system process) 57a. Induction of Labor: N/A (05/19/2020 19:53:Jazlyn Cuello RN) 57a. Induction of Labor: Cervidil (05/19/2020 21:58:Rosalie Collier RN) 57c. Non-Vertex Presentation A: Vertex (05/19/2020 19:53:Jazlyn Cuello RN) 57d. Steroids - Lung Mat: None (05/19/2020 19:53:Rosalie Collier RN) 57d. Steroids - Lung Mat: Not Applicable (05/19/2020 19:53:Rosalie Collier RN) 57g. Moderate/Heavy Meconium: Clear (05/19/2020 19:53:Jazlyn Cuello RN) 57h. Intolerance of Labor: N/A (05/19/2020 19:53:Jazlyn Cuello RN) : N/A (05/19/2020 19:53:Jazlyn Cuello RN) 57i. Epidural/Spinal Anesthesia: Epidural (05/19/2020 19:53:Jazlyn Cuello RN) Method of Delivery 58a. Forceps - Unsuccessful A: N/A (05/19/2020 19:53:Jazlyn Cuello RN) 58b. Vacuum - Unsuccessful A: N/A (05/19/2020 19:53:Jazlyn Cuello RN) 58c. Presentation at 58c. Presentation at - A : Vertex (05/19/2020 19:53:Jazlyn Cuello RN) 58c. Presentation at - A : N/A (05/19/2020 19:53:Jazlyn Cuello RN) 58c. Presentation at - A : Cephalic (05/19/2020 19:53:Rosalie Collier RN) Final Route and Method of Del 58d. Baby A Route/Delivery: Vaginal (05/19/2020 19:53:Jazlyn Cuello RN) 58e. Trial of Labor Attempted: No (05/19/2020 19:53:Rosalie Collier RN) 58e. Trial of Labor Attempted A: N/A (05/19/2020 19:53:Rosalie Collier RN) 58e. Trial of Labor Attempted B: N/A (05/19/2020 19:53:Rosalie Collier RN) Maternal Morbidity 59b. 3rd or 4th Degree Lacs: N/A (05/19/2020 19:53:Jazlyn Cuello RN) 59b. 3rd or 4th Degree Lacs: small labial minoral tare, hemostatiec, no repair needed (05/19/2020 19:53:Jia Willett CNM) Birthweight Baby A: 2725 (05/19/2020 19:53:Korina Valdes RN) 60a. Pounds : 6 (05/19/2020 19:53:QS system process) 60b. Ounces: 0 (05/19/2020 19:53:QS system process) 61. GA at Delivery Baby A: 38.4 (05/19/2020 19:53:Rosalie Collier RN) : Early Term- 37- 38.6 Weeks (05/19/2020 19:53:QS system process) 62a. 5 Minute Baby A: 9 (05/19/2020 19:53:QS system process)
[2020-05-20 12:02] LABS: ALBUMIN 3.5 g/dL (3.5-5.0); ALKALINE PHOSPHATASE 200 U/L (38-126); ANION GAP 9 (5-19); ASPARTATE AMINO TRANSFERASE 26 U/L (14-36); BILIRUBIN,DIRECT 0.2 mg/dL (0.0-0.4); BILIRUBIN,TOTAL 0.5 mg/dL (0.2-1.3); BLOOD UREA NITROGEN 13 mg/dL (7-20); CALCIUM 8.8 mg/dL (8.4-10.2); CARBON DIOXIDE 19 mmol/L (22-30); CHLORIDE 109 mmol/L (98-107); GLUCOSE 83 mg/dL (75-110); POTASSIUM 4.5 mmol/L (3.6-5.0)
[2020-05-20] MEDS ORDERED: IBUPROFEN 800 MG TABLET PO ONE (14:30)
[2020-05-20] MEDS: FERROUS SULFATE 325 MG TABLET PO SCH (17:46)
[2020-05-20] MEDS: DOCUSATE SODIUM 100 MG CAPSULE PO SCH (17:46)
[2020-05-20] MEDS: FAMOTIDINE 20 MG TABLET PO SCH (22:08)
[2020-05-20] MEDS: IBUPROFEN 800 MG TABLET PO SCH (22:08)
[2020-05-21] MEDS: IBUPROFEN 800 MG TABLET PO SCH ×2 (05:30→22:35)
[2020-05-21 07:36] LABS: HEMATOCRIT 29.3 % (36.0-47.0); MEAN CORPUSCULAR HEMOGLOBIN 31.9 pg (27.0-33.4); MEAN CORPUSCULAR HGB CONC 35.1 g/dL (32.0-36.0); MEAN CORPUSCULAR VOLUME 91 fl (80-97); RED BLOOD COUNT 3.23 10^6/uL (3.72-5.28); RED CELL DISTRIBUTION WIDTH 14.5 % (11.5-14.0); WHITE BLOOD COUNT 6.4 10^3/uL (4.0-10.5)
[2020-05-21] MEDS: ACETAMINOPHEN WITH CODEINE #3 TABLET PO PRN ×3 (07:56→18:15)
[2020-05-21 08:01] LABS: HEPATITS B SURFACE ANTIGEN Negative (Negative)
[2020-05-21 08:03] LABS: PLATELET COUNT 80 10^3/uL (150-450)
[2020-05-21 08:33] LABS: HEMOGLOBIN 10.3 g/dL (12.0-15.5)
--- NOTE | 2020-05-21 10:43 | PDOC PROGRESS REPORT ---
Subjective-OB Progress Note for:: 05/21/20 Physical Exam (OB) Vital Signs: Temp Pulse Resp BP Pulse Ox 97.7 F 62 18 127/84 H 98 05/21/20 08:13 05/21/20 08:13 05/21/20 08:13 05/21/20 08:13 05/21/20 08:13 Intake & Output 05/20/20 05/21/20 05/22/20 06:59 06:59 06:59 Intake Total 1000 318 Balance 1000 318 Weight 63.6 kg - PIH/Pre-Eclampsia DTR's: 2 + Clonus: Negative Headache: Absent Epigastric Pain: No Visual Changes: No - Maternal Morbidity 59. Maternal Morbidity (serious complications experinced by the mother associated with labor and delivery: None of the above - Lochia Lochia Amount: Scant < 10 ml Lochia Color: Rubra/Red - Abdomen Description: Soft, Round Hernia Present: Yes - HX. umbilical hernia Bowel Sounds: Normoactive Flatus Presence: Present Stool: Yes Fundal Description: Firm, Midline Fundal Height: u/u - u/2 Objective-Diagnostic Laboratory: 05/21/20 06:43 05/20/20 08:23 05/20/20 05/21/20 08:23 06:43 WBC 6.4 RBC 3.23 L Hgb 10.3 L D Hct 29.3 L MCV 91 MCH 31.9 MCHC 35.1 RDW 14.5 H Plt Count 80 L Sodium 136.6 L Potassium 4.5 Chloride 109 H Carbon Dioxide 19 L Anion Gap 9 BUN 13 Creatinine 0.66 Est GFR ( Amer) > 60 Glucose 83 Calcium 8.8 Total Bilirubin 0.5 AST 26 Alkaline Phosphatase 200 H Total Protein 6.0 L Albumin 3.5 Assessment and Plan(PN) - Time Spent with Patient Time with patient: 15-25 minutes Medications reviewed and adjusted accordingly: Yes - Disposition Anticipated Discharge Disposition: Home, Self Care Anticipated Discharge Timeframe: within 36 hours
[2020-05-21] MEDS: SENNOSIDES/DOCUSATE 8.6-50 MG 1 EACH TABLET PO SCH (10:48)
[2020-05-21] MEDS: DOCUSATE SODIUM 100 MG CAPSULE PO SCH ×2 (10:48→18:14)
[2020-05-21] MEDS: FAMOTIDINE 20 MG TABLET PO SCH ×2 (10:48→21:55)
[2020-05-21] MEDS: PRENATAL VITAMIN W DHA CAPSULE PO SCH (10:49)
[2020-05-21] MEDS: FERROUS SULFATE 325 MG TABLET PO SCH ×2 (10:49→18:14)
[2020-05-21] MEDS ORDERED: SERTRALINE HCL 50 MG TABLET PO ONE (20:17)
[2020-05-21] MEDS ORDERED: ZOLPIDEM TARTRATE 5 MG TABLET PO PRN (20:17)
[2020-05-22] MEDS: ACETAMINOPHEN WITH CODEINE #3 TABLET PO PRN ×2 (00:20→05:15)
[2020-05-22] MEDS: IBUPROFEN 800 MG TABLET PO SCH ×2 (04:36→06:30)
[2020-05-22 08:31] VITALS: BP 142/83
[2020-05-22] MEDS: FERROUS SULFATE 325 MG TABLET PO SCH (09:26)
[2020-05-22] MEDS: FAMOTIDINE 20 MG TABLET PO SCH (09:26)
[2020-05-22] MEDS: DOCUSATE SODIUM 100 MG CAPSULE PO SCH (09:27)
[2020-05-22] MEDS: PRENATAL VITAMIN W DHA CAPSULE PO SCH (09:27)
[2020-05-22] MEDS: SENNOSIDES/DOCUSATE 8.6-50 MG 1 EACH TABLET PO SCH (09:28)
[2020-05-22] MEDS ORDERED: NICOTINE 14 MG/24 HR PATCH.TD24 TD SCH (10:00)
--- NOTE | 2020-05-22 11:12 | PDOC PROGRESS REPORT ---
Subjective-OB Progress Note for:: 05/22/20 Subjective: Pt doing well, no complaints of headache vision changes. She reports normal bleeding. States she got overwhelmed and was crying last night, was given some medication that helped. She denies hx of depression/anxiety, denies hx of PPD, has never been on meds. States she is just ready to go home and she does not want her blood drawn. I discussed her elevated bp and the low platelet count yesterday and expressed my concern for pre-eclampsia. She states her bp is always high now and its okay and that she feels fine and doesn't want her labs to delay her discharge. I reassured her that the laboratory phlebotomist was on the floor now and that it would not delay her discharge and she still refused to have labs drawn. She did agree to come to [facility] early next week for BP check and to follow up sooner if she developed any symptoms of pre-eclampsia which I reviewed. She agreed to call us or come to ER if she became overwhelmed and/or felt like hurting herself or her children. She reassured me that she was fine and wanted to go home now. Physical Exam (OB) Vital Signs: Temp Pulse Resp BP Pulse Ox 97.9 F 61 18 142/83 H 100 05/22/20 10:00 05/22/20 08:06 05/22/20 04:11 05/22/20 08:06 05/22/20 08:06 Intake & Output 05/21/20 05/22/20 05/23/20 06:59 06:59 06:59 Intake Total 318 740 Balance 318 740 - PIH/Pre-Eclampsia DTR's: 2 + Clonus: Negative Headache: Absent Epigastric Pain: No Visual Changes: No - Maternal Morbidity 59. Maternal Morbidity (serious complications experinced by the mother associated with labor and delivery: None of the above - Lochia Lochia Amount: Small 10-25 ml Lochia Color: Rubra/Red - Abdomen Description: Firm Hernia Present: Yes Fundal Description: Firm Fundal Height: u/u - u/2 Objective-Diagnostic Laboratory: 05/21/20 06:43 05/20/20 08:23 Assessment and Plan(PN) - Assessment and Plan (1) Addiction, marijuana Is this a current diagnosis for this admission?: Yes (2) Gestational hypertension Qualifiers: Trimester: third trimester Qualified Code(s): O13.3 - Gestational [-induced] hypertension without significant proteinuria, third trimester Is this a current diagnosis for this admission?: Yes (3) Gestational thrombocytopenia without hemorrhage in third trimester Is this a current diagnosis for this admission?: Yes (4) Poor dentition Is this a current diagnosis for this admission?: Yes (5) Poor patient attendance of care Is this a current diagnosis for this admission?: Yes (6) Smoker Is this a current diagnosis for this admission?: Yes (7) Tetrahydrocannabinol (THC) dependence Is this a current diagnosis for this admission?: Yes (8) Vaginal delivery Is this a current diagnosis for this admission?: Yes - Time Spent with Patient Time with patient: Less than 15 minutes Medications reviewed and adjusted accordingly: Yes - Disposition Anticipated Discharge Disposition: Home, Self Care Anticipated Discharge Timeframe: within 24 hours
--- NOTE | 2020-05-22 11:15 | PDOC DISCHARGE SUMMARY ---
Impression - Admit/DC Date/PCP Admission Date/Primary Care Provider: 05/19/20 20:06 MARCIAL KING CNM Discharge Date: 05/22/20 - Discharge Diagnosis (1) Addiction, marijuana Is this a current diagnosis for this admission?: Yes (2) Gestational hypertension Is this a current diagnosis for this admission?: Yes (3) Gestational thrombocytopenia without hemorrhage in third trimester Is this a current diagnosis for this admission?: Yes (4) Poor dentition Is this a current diagnosis for this admission?: Yes (5) Poor patient attendance of care Is this a current diagnosis for this admission?: Yes (6) Smoker Is this a current diagnosis for this admission?: Yes (7) Tetrahydrocannabinol (THC) dependence Is this a current diagnosis for this admission?: Yes (8) Vaginal delivery Is this a current diagnosis for this admission?: Yes - Additional Information Resuscitation Status: Full Code Discharge Diet: Regular Discharge Activity: Balance Activity w/Rest, Pelvic Rest, Slowly Increase Activity Referrals: MARCIAL KING CNM [Primary Care Provider] - Home Medications: Vit/Iron Fum/Folic AC [ Tablet] 1 each PO DAILY 11/17/17 HPI Gestational Age: 38.3 Reason(s) for Admission: Induction of Labor, PIH Procedures: NST Intrapartum Procedure(s): Spontaneous Vaginal Delivery Complication(s): Laceration-Labial Laceration-Degree: 1st Hospital Course 59. Maternal Morbidity (serious complications experinced by the mother associated with labor and delivery: None of the above Results Laboratory Results: WBC 6.4 10^3/uL (4.0-10.5) 05/21/20 06:43 RBC 3.23 10^6/uL (3.72-5.28) L 05/21/20 06:43 Hgb 10.3 g/dL (12.0-15.5) L D 05/21/20 06:43 Hct 29.3 % (36.0-47.0) L 05/21/20 06:43 MCV 91 fl (80-97) 05/21/20 06:43 MCH 31.9 pg (27.0-33.4) 05/21/20 06:43 MCHC 35.1 g/dL (32.0-36.0) 05/21/20 06:43 RDW 14.5 % (11.5-14.0) H 05/21/20 06:43 Plt Count 80 10^3/uL (150-450) L 05/21/20 06:43 Lymph % (Auto) 11.3 % (13-45) L 05/20/20 08:23 [place] % (Auto) 10.4 % (3-13) 05/20/20 08:23 Eos % (Auto) 0.8 % (0-6) 05/20/20 08:23 Baso % (Auto) 0.6 % (0-2) 05/20/20 08:23 Absolute Neuts (auto) 8.2 10^3/uL (1.7-8.2) 05/20/20 08: Absolute Lymphs (auto) 1.2 10^3/uL (0.5-4.7) 05/20/20 08:23 Absolute Monos (auto) 1.1 10^3/uL (0.1-1.4) 05/20/20 08:23 Absolute Eos (auto) 0.1 10^3/uL (0.0-0.6) 05/20/20 08:23 Absolute Basos (auto) 0.1 10^3/uL (0.0-0.2) 05/20/20 08:23 Seg Neutrophils % 76.9 % (42-78) 05/20/20 08:23 Sodium 136.6 mmol/L (137-145) L 05/20/20 08:23 Potassium 4.5 mmol/L (3.6-5.0) 05/20/20 08:23 Chloride 109 mmol/L (98-107) H 05/20/20 08:23 Carbon Dioxide 19 mmol/L (22-30) L 05/20/20 08:23 Anion Gap 9 (5-19) 05/20/20 08:23 BUN 13 mg/dL (7-20) 05/20/20 08:23 Creatinine 0.66 mg/dL (0.52-1.25) 05/20/20 08:23 Est GFR ( Amer) > 60 (>60) 05/20/20 08:23 Est GFR (MDRD) Non-Af > 60 (>60) 05/20/20 08:23 Glucose 83 mg/dL (75-110) 05/20/20 08:23 Calcium 8.8 mg/dL (8.4-10.2) 05/20/20 08:23 Total Bilirubin 0.5 mg/dL (0.2-1.3) 05/20/20 08:23 Direct Bilirubin 0.2 mg/dL (0.0-0.4) 05/20/20 08:23 Neonat Total Bilirubin Not Reportable 05/20/20 08:23 Neonat Direct Bilirubin Not Reportable 05/20/20 08:23 Neonat Indirect Bili Not Reportable 05/20/20 08:23 AST 26 U/L (14-36) 05/20/20 08:23 ALT 13 U/L (<35) 05/20/20 08:23 Alkaline Phosphatase 200 U/L (38-126) H 05/20/20 08:23 Total Protein 6.0 g/dL (6.3-8.2) L 05/20/20 08:23 Albumin 3.5 g/dL (3.5-5.0) 05/20/20 08:23 Urine Color NICOLE 05/19/20 20:24 Urine Appearance CLEAR 05/19/20 20:24 Urine pH 6.0 (5.0-9.0) 05/19/20 20:24 Ur Specific [place] 1.027 05/19/20 20:24 Urine Protein 30 mg/dL (NEGATIVE) H 05/19/20 20:24 Urine Glucose (UA) NEGATIVE mg/dL (NEGATIVE) 05/19/20 20:24 Urine Ketones TRACE mg/dL (NEGATIVE) H 05/19/20 20:24 Urine Blood NEGATIVE (NEGATIVE) 05/19/20 20:24 Urine Nitrite NEGATIVE (NEGATIVE) 05/19/20 20:24 Urine Bilirubin NEGATIVE (NEGATIVE) 05/19/20 20:24 Urine Urobilinogen NEGATIVE mg/dL (<2.0) 05/19/20 20:24 Ur Leukocyte Esterase SMALL (NEGATIVE) H 05/19/20 20:24 Urine WBC (Auto) 3 /HPF 05/19/20 20:24 Urine RBC (Auto) 1 /HPF 05/19/20 20:24 Squamous Epi Cells Auto 6 /HPF 05/19/20 20:24 Urine Mucus (Auto) MOD /LPF 05/19/20 20:24 Urine Ascorbic Acid 20 (NEGATIVE) H 05/19/20 20:24 Urine Opiates Screen NEGATIVE 05/19/20 20:24 Urine Methadone Screen NEGATIVE 05/19/20 20:24 Ur Barbiturates Screen NEGATIVE 05/19/20 20:24 Ur Phencyclidine Scrn NEGATIVE 05/19/20 20:24 Ur Amphetamines Screen NEGATIVE 05/19/20 20:24 U Benzodiazepines Scrn NEGATIVE 05/19/20 20:24 Urine Cocaine Screen NEGATIVE 05/19/20 20:24 U Marijuana (THC) Screen UNCONFIRMED POSITIVE 05/19/20 20:24 RPR NONREACTIVE (NONREACTIVE) 05/19/20 20:51 Chlamydia DNA (PCR) NOT DETECTED (NOT DETECT) 05/20/20 02:15 Hep Bs Antigen Negative (Negative) 05/19/20 20:51 HIV 1&2 Antibody NEGATIVE (NEGATIVE) 05/19/20 20:51 N.gonorrhoeae DNA (PCR) NOT DETECTED (NOT DETECT) 05/20/20 02:15 Rubella IgG Antibody 26.80 IU/mL 05/19/20 20:51 Rubella IgG Ab Interp POSITIVE 05/19/20 20:51 Blood Type O POSITIVE 05/19/20 20:51 Antibody Screen NEGATIVE 10 20:51 Plan Plan of Treatment: f/u at [facility] early next week
== END 2020-05-22 12:20 | disposition home or self-care (01) | DRG 806 ==
LOC: LR 20:06 → 2S 05-20 11:37
PROVIDERS: ADMIT Obstetrics & Gynecology Gynecology; ATTEND Obstetrics & Gynecology Gynecology
PROC: 10E0XZZ Delivery of Products of Conception, External Approach (ICD-10-PCS; principal; 2020-05-20)
PROC: 0HQ9XZZ Repair Perineum Skin, External Approach (ICD-10-PCS; 2020-05-20)
DX: O13.4 Gestational [pregnancy-induced] hypertension without significant proteinuria, complicating childbirth (principal); O99.12 Other diseases of the blood and blood-forming organs and certain disorders involving the immune mechanism complicating childbirth; Z37.0 Single live birth; O99.324 Drug use complicating childbirth; F12.20 Cannabis dependence, uncomplicated; O99.334 Smoking (tobacco) complicating childbirth; F17.210 Nicotine dependence, cigarettes, uncomplicated; D69.6 Thrombocytopenia, unspecified; Z88.1 Allergy status to other antibiotic agents; Z88.3 Allergy status to other anti-infective agents; Z88.0 Allergy status to penicillin; Z3A.38 38 weeks gestation of pregnancy
CPT/HCPCS: 1967; 36415; 80053; 80307; 81001; 85025; 85027; 86592; 86701; 86762; 86850; 86900; 86901; 87340; 87491; 87591; 88307; J2300; J2550; J2590; J2795; J3010; J3490